=== PATIENT | female | born 1975 | race Caucasian/White ===

== ENCOUNTER 2017-12-30 23:41 | Inpatient (IN) | payer MEDICAID, OTHER ==
[~2017-12-30] VITALS: Ht 172.7 cm; Wt 69.2 kg
[2017-12-30] MEDS ORDERED: GABA-529 PO (23:56)
[2017-12-30] MEDS ORDERED: CITA10TA68 PO (23:59)
[2017-12-30] MEDS ORDERED: DIVA125T PO (23:59)
[2017-12-30] MEDS ORDERED: LEVO100 PO (23:59)
[2017-12-31] VITALS (9 sets, daily range): BP systolic 112–138; BP diastolic 54–82
[2017-12-31] MEDS ORDERED: MUPI22OI2 TP (00:29)
[2017-12-31] MEDS ORDERED: RIT5 PO (00:29)
[2017-12-31 00:35] LABS: EOSINOPHILS % (AUTO) 0.2 % (1.0-6.0); HEMOGLOBIN 12.8 g/dL (12.0-16.0); LYMPHOCYTES # (AUTO) 2.8 K/uL (1.0-4.8); LYMPHOCYTES % (AUTO) 36.1 % (22.0-44.0); MEAN CORPUSCULAR HEMOGLOBIN 33.1 pg (26.0-34.0); MEAN CORPUSCULAR HGB CONC 34.8 G/dL (31.0-37.0); MEAN CORPUSCULAR VOLUME 95 fL (80-100); MONOCYTES # (AUTO) 0.6 K/uL (0.1-1.0); MONOCYTES % (AUTO) 7.7 % (2.0-9.0); NEUTROPHILS # (AUTO) 4.3 K/uL (1.8-7.7); PLATELET COUNT (AUTO) 274 K/uL (150-450); RED BLOOD CELL COUNT(AUTO) 3.88 MIL/uL (4.00-5.20); RED CELL DISTRIBUTION WIDTH 13.7 % (11.5-14.5)
[2017-12-31 00:42] LABS: ANION GAP 15 mmol/L (8-16); CALCIUM, TOTAL 8.1 mg/dL (8.8-10.5); CARBON DIOXIDE 23 mmol/L (22-29); CHLORIDE 106 mmol/L (98-107); CREATININE 0.91 mg/dL (0.60-1.30); GLOMERULAR FILTR. RATE CALC > 60 mL/min (>60); GLUCOSE,RANDOM 69 mg/dL (70-110); POTASSIUM 3.9 mmol/L (3.5-5.1); SODIUM SERUM 144 mmol/L (136-145); UREA NITROGEN, BLOOD 28 mg/dL (7-18)
[2017-12-31 00:48] LABS: ALANINE AMINOTRANSFERASE 127 U/L (12-78); ALBUMIN 3.4 g/dL (3.4-5.0); ALKALINE PHOSPHATASE 105 U/L (46-116); ASPARTATE AMINOTRANSFERASE 310 U/L (15-37); BILIRUBIN,TOTAL 0.3 mg/dL (0.1-1.0)
[2017-12-31 01:19] LABS: AMPHET/METH SCREEN,URINE NEGATIVE (NEGATIVE); BARBITURATE SCREEN, URINE NEGATIVE (NEGATIVE); BENZODIAZEPINES SCREEN,URINE NEGATIVE (NEGATIVE); CANNABINOID SCREEN,URINE POSITIVE (NEGATIVE); COCAINE SCREEN,URINE POSITIVE (NEGATIVE); METHADONE SCREEN, URINE NEGATIVE (NEGATIVE); OPIATE SCREEN,URINE NEGATIVE (NEGATIVE)
[2017-12-31 01:20] LABS: PHENCYCLIDINE SCREEN,URINE NEGATIVE (NEGATIVE)
[2017-12-31] MEDS ORDERED: LORazepam 1 MG TABLET PO ONE (04:00)
[2017-12-31] MEDS ORDERED: OLANZapine 5 MG RAPDIS TABLET PO PRN ×2 (04:15→10:15)
[2017-12-31] MEDS ORDERED: LORazepam 1 MG TABLET PO PRN (04:15)
[2017-12-31] MEDS ORDERED: KETOROLAC TROMETHAMINE 30 MG/ML VIAL IM ONE (04:45)
[2017-12-31] MEDS ORDERED: CLINDAMYCIN PHOS 150 MG/ML 4 ML VIAL IM ONE (04:45)
[2017-12-31] MEDS ORDERED: LIDOCAINE HCL/PF 1% 2 ML VIAL IM ONE (06:00)
[2017-12-31] MEDS ORDERED: AZITHROMYCIN 250 MG TABLET PO ONE (06:00)
[2017-12-31] MEDS ORDERED: CefTRIAXone SODIUM 1 GM/VIAL IM ONE (06:00)
[2017-12-31] MEDS ORDERED: LOPERAMIDE HCL 2 MG CAPSULE PO PRN ×2 (10:15)
[2017-12-31] MEDS ORDERED: TUBERCULIN, PURIFIED PROTEIN DERIVATIVE 5 TU/0.1 ML SYG ID ONE (10:15)
[2017-12-31] MEDS ORDERED: HydrOXYzine PAMOATE 50 MG CAPSULE PO PRN (10:15)
[2017-12-31] MEDS ORDERED: CYANOCOBALAMIN 1,000 MCG/ML VIAL IM ONE (10:15)
[2017-12-31] MEDS ORDERED: PROMETHAZINE HCL 25 MG TABLET PO PRN (10:15)
[2017-12-31] MEDS ORDERED: LORazepam 2 MG TABLET PO PRN (10:15)
[2017-12-31] MEDS ORDERED: GuaiFENesin/D-METHORPHAN [SUGAR-FREE] 200-20MG/10 ML SYRUP UDCUP PO PRN (10:15)
[2017-12-31] MEDS ORDERED: GABAPENTIN 300 MG CAPSULE PO SCH (13:00)
[2017-12-31] MEDS: GABAPENTIN 300 MG CAPSULE PO SCH ×3 (13:47→20:39)
[2017-12-31] MEDS: DIAZEPAM 10 MG TABLET PO PRN ×3 (13:59→21:32)
[2017-12-31] MEDS: ACETAMINOPHEN 325 MG TABLET PO PRN (14:21)
[2017-12-31] MEDS: THIAMINE HCL 100 MG TABLET PO SCH (17:43)
[2017-12-31] MEDS: DIVALPROEX SODIUM 500 MG ER TABLET PO SCH (17:43)
[2017-12-31] MEDS: PRAZOSIN HCL 1 MG CAPSULE PO SCH (20:38)
[2017-12-31] MEDS: QUEtiapine FUMARATE 200 MG TABLET PO SCH (21:32)
[2018-01-01] VITALS (7 sets, daily range): BP systolic 98–160; BP diastolic 61–90
[2018-01-01] MEDS: DIAZEPAM 10 MG TABLET PO PRN ×2 (00:02→23:57)
[2018-01-01] MEDS: ACETAMINOPHEN 325 MG TABLET PO PRN (00:03)
[2018-01-01] MEDS ORDERED: LORazepam 2 MG TABLET PO PRN (07:00)
[2018-01-01] MEDS: GABAPENTIN 300 MG CAPSULE PO SCH ×4 (08:14→20:23)
[2018-01-01] MEDS: DIVALPROEX SODIUM 500 MG ER TABLET PO SCH ×3 (08:14→16:10)
[2018-01-01] MEDS: DIAZEPAM 10 MG TABLET PO SCH ×4 (08:14→20:23)
[2018-01-01] MEDS: MULTIVITAMINS WITH MINERALS, THERAPEUTIC TABLET PO SCH (08:14)
[2018-01-01] MEDS: FOLIC ACID 1 MG TABLET PO SCH (08:14)
[2018-01-01] MEDS: QUEtiapine FUMARATE 25 MG TABLET PO PRN ×3 (08:15→17:25)
[2018-01-01] MEDS: THIAMINE HCL 100 MG TABLET PO SCH ×2 (08:15→16:10)
[2018-01-01] MEDS: ATOMOXETINE HCL 10 MG CAPSULE PO SCH (08:17)
[2018-01-01] MEDS: NALTREXONE HCL 50 MG TABLET PO SCH (08:17)
[2018-01-01] MEDS ORDERED: LORazepam 2 MG TABLET PO SCH (09:00)
[2018-01-01] MEDS ORDERED: ACETAMINOPHEN 325 MG TABLET PO PRN (17:00)
[2018-01-01] MEDS: CEPHALEXIN MONOHYDRATE 500 MG CAPSULE PO SCH (17:24)
[2018-01-01] MEDS: IBUPROFEN 400 MG TABLET PO PRN (17:25)
[2018-01-01] MEDS: PRAZOSIN HCL 1 MG CAPSULE PO SCH (20:24)
[2018-01-01] MEDS: QUEtiapine FUMARATE 200 MG TABLET PO SCH (20:24)
[2018-01-01] MEDS: ZOLPIDEM TARTRATE 10 MG TABLET PO PRN (23:00)
[2018-01-02] VITALS: BP 117/36
[2018-01-02 01:00] VITALS: BP 117/76
[2018-01-02] MEDS: DIAZEPAM 10 MG TABLET PO PRN (02:50)
[2018-01-02] MEDS: QUEtiapine FUMARATE 25 MG TABLET PO PRN ×4 (02:50→18:46)
[2018-01-02] MEDS: LEVOTHYROXINE SODIUM 100 MCG TABLET PO SCH (06:40)
[2018-01-02 08:41] LABS: APPEARANCE,URINE CLOUDY (CLEAR); BILIRUBIN,URINE NEGATIVE (NEGATIVE); GLUCOSE, URINE (UA) NEGATIVE (NEGATIVE); KETONES,URINE NEGATIVE (NEGATIVE); LEUKOCYTE ESTERASE ,URINE LARGE (NEGATIVE); NITRATE,URINE NEGATIVE (NEGATIVE); OCCULT BLOOD,URINE LARGE (NEGATIVE); PROTEIN,URINE NEGATIVE (NEGATIVE); UROBILINOGEN,URINE 0.2 mg/dL (<=1.0)
[2018-01-02 08:49] LABS: BACTERIA,URINE Few /HPF (None Seen); RBC,URINE 0-2 /HPF (0-2); SQUAMOUS EPITHELIAL CELL,UR Many /LPF (None Seen); YEAST,URINE Many /HPF (None Seen)
[2018-01-02] MEDS: ATOMOXETINE HCL 10 MG CAPSULE PO SCH (09:19)
[2018-01-02] MEDS: FOLIC ACID 1 MG TABLET PO SCH (09:19)
[2018-01-02] MEDS: CEPHALEXIN MONOHYDRATE 500 MG CAPSULE PO SCH ×3 (09:19→17:04)
[2018-01-02] MEDS: MULTIVITAMINS WITH MINERALS, THERAPEUTIC TABLET PO SCH (09:19)
[2018-01-02] MEDS: DIAZEPAM 10 MG TABLET PO SCH ×4 (09:19→20:23)
[2018-01-02] MEDS: THIAMINE HCL 100 MG TABLET PO SCH ×2 (09:19→17:05)
[2018-01-02] MEDS: NALTREXONE HCL 50 MG TABLET PO SCH (09:19)
[2018-01-02] MEDS: DIVALPROEX SODIUM 500 MG ER TABLET PO SCH ×3 (09:19→17:04)
[2018-01-02] MEDS: GABAPENTIN 300 MG CAPSULE PO SCH ×4 (09:20→20:23)
[2018-01-02 09:38] VITALS: BP 117/81
[2018-01-02 09:39] VITALS: BP 117/81
[2018-01-02 16:00] VITALS: BP 111/77
[2018-01-02 17:05] VITALS: BP 111/77
[2018-01-02] MEDS: IBUPROFEN 400 MG TABLET PO PRN (17:05)
[2018-01-02] MEDS: PRAZOSIN HCL 1 MG CAPSULE PO SCH (20:23)
[2018-01-02] MEDS ORDERED: QUEtiapine FUMARATE 200 MG TABLET PO SCH (21:00)
[2018-01-02] MEDS: ZOLPIDEM TARTRATE 10 MG TABLET PO PRN (22:26)
[2018-01-03] MEDS: DIAZEPAM 10 MG TABLET PO PRN (03:16)
[2018-01-03] MEDS: LEVOTHYROXINE SODIUM 100 MCG TABLET PO SCH (06:55)
[2018-01-03] MEDS ORDERED: LORazepam 1 MG TABLET PO PRN (07:00)
[2018-01-03] MEDS ORDERED: DIAZEPAM 5 MG TABLET PO PRN (07:00)
[2018-01-03 07:12] VITALS: BP 116/82
[2018-01-03 08:15] VITALS: BP 121/72
[2018-01-03] MEDS: ATOMOXETINE HCL 10 MG CAPSULE PO SCH (08:26)
[2018-01-03] MEDS: DIVALPROEX SODIUM 500 MG ER TABLET PO SCH ×3 (08:26→16:22)
[2018-01-03] MEDS: CEPHALEXIN MONOHYDRATE 500 MG CAPSULE PO SCH ×3 (08:26→16:22)
[2018-01-03] MEDS: MULTIVITAMINS WITH MINERALS, THERAPEUTIC TABLET PO SCH (08:26)
[2018-01-03] MEDS: QUEtiapine FUMARATE 25 MG TABLET PO PRN ×3 (08:26→17:15)
[2018-01-03] MEDS: THIAMINE HCL 100 MG TABLET PO SCH ×2 (08:26→16:22)
[2018-01-03] MEDS: GABAPENTIN 300 MG CAPSULE PO SCH ×4 (08:26→20:13)
[2018-01-03] MEDS: DIAZEPAM 5 MG TABLET PO SCH ×4 (08:26→20:12)
[2018-01-03] MEDS: NALTREXONE HCL 50 MG TABLET PO SCH (08:26)
[2018-01-03] MEDS: FOLIC ACID 1 MG TABLET PO SCH (08:26)
[2018-01-03] MEDS ORDERED: LORazepam 1 MG TABLET PO SCH (09:00)
[2018-01-03] MEDS: IBUPROFEN 400 MG TABLET PO PRN (13:00)
[2018-01-03] MEDS: MAGNESIUM HYDROXIDE SUSPENSION 30 ML UDCUP PO PRN (17:16)
[2018-01-03 18:24] VITALS: BP 117/83
[2018-01-03 20:09] VITALS: BP 128/92
[2018-01-03] MEDS: PRAZOSIN HCL 1 MG CAPSULE PO SCH (20:12)
[2018-01-03] MEDS: QUEtiapine FUMARATE 300 MG TABLET PO SCH (20:12)
[2018-01-03] MEDS: MAG HYDROX/AL HYDROX/SIMETH ES 30 ML SUSPENSION UDCUP PO PRN (21:55)
[2018-01-04 01:45] VITALS: BP 115/77
[2018-01-04] MEDS: ZOLPIDEM TARTRATE 10 MG TABLET PO PRN ×2 (01:45→21:59)
[2018-01-04] MEDS: QUEtiapine FUMARATE 25 MG TABLET PO PRN ×4 (01:46→16:13)
[2018-01-04 06:45] VITALS: BP 116/83
[2018-01-04] MEDS: IBUPROFEN 400 MG TABLET PO PRN (06:51)
[2018-01-04] MEDS ORDERED: LORazepam 1 MG TABLET PO PRN (07:00)
[2018-01-04] MEDS: LEVOTHYROXINE SODIUM 100 MCG TABLET PO SCH (07:14)
[2018-01-04 08:00] VITALS: BP 125/74
[2018-01-04] MEDS: GABAPENTIN 300 MG CAPSULE PO SCH ×4 (09:06→20:55)
[2018-01-04] MEDS: THIAMINE HCL 100 MG TABLET PO SCH ×2 (09:06→16:11)
[2018-01-04] MEDS: FOLIC ACID 1 MG TABLET PO SCH (09:06)
[2018-01-04] MEDS: DIVALPROEX SODIUM 500 MG ER TABLET PO SCH ×3 (09:06→16:12)
[2018-01-04] MEDS: MULTIVITAMINS WITH MINERALS, THERAPEUTIC TABLET PO SCH (09:06)
[2018-01-04] MEDS: CEPHALEXIN MONOHYDRATE 500 MG CAPSULE PO SCH ×3 (09:06→16:11)
[2018-01-04] MEDS: ATOMOXETINE HCL 10 MG CAPSULE PO SCH (09:07)
[2018-01-04] MEDS: NALTREXONE HCL 50 MG TABLET PO SCH (09:07)
[2018-01-04] MEDS: DIAZEPAM 5 MG TABLET PO PRN ×2 (09:10→13:39)
[2018-01-04] MEDS: MAGNESIUM HYDROXIDE SUSPENSION 30 ML UDCUP PO PRN (13:13)
[2018-01-04 17:44] VITALS: BP 123/86
[2018-01-04] MEDS ORDERED: ACETAMINOPHEN 325 MG TABLET PO PRN (19:45)
[2018-01-04 20:13] VITALS: BP 118/72
[2018-01-04] MEDS: TraMADol HCL 50 MG TABLET PO PRN (20:16)
[2018-01-04] MEDS: PRAZOSIN HCL 1 MG CAPSULE PO SCH (20:55)
[2018-01-04] MEDS: QUEtiapine FUMARATE 300 MG TABLET PO SCH (20:56)
[2018-01-05] VITALS: BP 121/71
[2018-01-05] MEDS: DIAZEPAM 5 MG TABLET PO PRN ×3 (00:02→05:17)
[2018-01-05] MEDS: QUEtiapine FUMARATE 25 MG TABLET PO PRN ×5 (05:17→22:26)
[2018-01-05 07:00] LABS: ALANINE AMINOTRANSFERASE 86 U/L (12-78); ALBUMIN 3.3 g/dL (3.4-5.0); ALKALINE PHOSPHATASE 82 U/L (46-116); ANION GAP 7 mmol/L (8-16); ASPARTATE AMINOTRANSFERASE 58 U/L (15-37); BILIRUBIN,TOTAL 0.3 mg/dL (0.1-1.0); CALCIUM, TOTAL 8.8 mg/dL (8.8-10.5); CARBON DIOXIDE 29 mmol/L (22-29); CHLORIDE 104 mmol/L (98-107); GLOMERULAR FILTR. RATE CALC > 60 mL/min (>60); GLUCOSE,RANDOM 96 mg/dL (70-110); POTASSIUM 4.3 mmol/L (3.5-5.1); SODIUM SERUM 140 mmol/L (136-145); TOTAL PROTEIN, SERUM 6.8 g/dL (6.4-8.2); UREA NITROGEN, BLOOD 14 mg/dL (7-18)
[2018-01-05] MEDS: LEVOTHYROXINE SODIUM 100 MCG TABLET PO SCH (07:29)
[2018-01-05] MEDS: DIVALPROEX SODIUM 500 MG ER TABLET PO SCH ×3 (08:51→17:20)
[2018-01-05] MEDS: GABAPENTIN 300 MG CAPSULE PO SCH ×4 (08:52→20:15)
[2018-01-05] MEDS: ATOMOXETINE HCL 10 MG CAPSULE PO SCH (08:52)
[2018-01-05] MEDS: CEPHALEXIN MONOHYDRATE 500 MG CAPSULE PO SCH ×3 (08:52→17:20)
[2018-01-05] MEDS: FOLIC ACID 1 MG TABLET PO SCH (08:52)
[2018-01-05] MEDS: NALTREXONE HCL 50 MG TABLET PO SCH (08:52)
[2018-01-05] MEDS: MULTIVITAMINS WITH MINERALS, THERAPEUTIC TABLET PO SCH (08:52)
[2018-01-05] MEDS: THIAMINE HCL 100 MG TABLET PO SCH ×2 (08:52→17:21)
[2018-01-05 08:58] VITALS: BP 129/77
[2018-01-05] MEDS: TraMADol HCL 50 MG TABLET PO PRN ×2 (08:58→17:19)
[2018-01-05] MEDS: MAG HYDROX/AL HYDROX/SIMETH ES 30 ML SUSPENSION UDCUP PO PRN (09:02)
[2018-01-05] MEDS: IBUPROFEN 400 MG TABLET PO PRN (10:54)
[2018-01-05 17:18] VITALS: BP 139/88
[2018-01-05 18:18] VITALS: BP 130/70
[2018-01-05 19:24] VITALS: BP 132/92
[2018-01-05] MEDS: PRAZOSIN HCL 1 MG CAPSULE PO SCH (20:15)
[2018-01-05] MEDS: QUEtiapine FUMARATE 300 MG TABLET PO SCH (20:15)
[2018-01-06 01:15] VITALS: BP 129/98
[2018-01-06] MEDS: ZOLPIDEM TARTRATE 10 MG TABLET PO PRN (01:20)
[2018-01-06] MEDS: QUEtiapine FUMARATE 25 MG TABLET PO PRN ×4 (04:37→13:53)
[2018-01-06] MEDS: TraMADol HCL 50 MG TABLET PO PRN ×2 (04:38→13:53)
[2018-01-06] MEDS: LEVOTHYROXINE SODIUM 100 MCG TABLET PO SCH (06:20)
[2018-01-06] MEDS: DIVALPROEX SODIUM 500 MG ER TABLET PO SCH ×3 (08:50→16:16)
[2018-01-06] MEDS: CEPHALEXIN MONOHYDRATE 500 MG CAPSULE PO SCH ×3 (08:51→16:17)
[2018-01-06] MEDS: THIAMINE HCL 100 MG TABLET PO SCH ×2 (08:51→16:16)
[2018-01-06] MEDS: FOLIC ACID 1 MG TABLET PO SCH (08:51)
[2018-01-06] MEDS: MULTIVITAMINS WITH MINERALS, THERAPEUTIC TABLET PO SCH (08:51)
[2018-01-06] MEDS: GABAPENTIN 300 MG CAPSULE PO SCH ×4 (08:52→20:57)
[2018-01-06] MEDS: ATOMOXETINE HCL 10 MG CAPSULE PO SCH (08:52)
[2018-01-06] MEDS: NALTREXONE HCL 50 MG TABLET PO SCH (08:52)
[2018-01-06 09:12] VITALS: BP 132/89
[2018-01-06 13:57] VITALS: BP 132/70
[2018-01-06 15:00] VITALS: BP 128/79
[2018-01-06] MEDS ORDERED: QUEtiapine FUMARATE 100 MG TABLET PO ONE (17:00)
[2018-01-06] MEDS ORDERED: NALT50TA PO (17:01)
[2018-01-06] MEDS ORDERED: ATOM10 PO (17:01)
[2018-01-06] MEDS ORDERED: QUET300T18 PO (17:01)
[2018-01-06] MEDS ORDERED: DIVA500T52 PO (17:01)
[2018-01-06] MEDS ORDERED: GABA-531 PO ×2 (17:01→17:10)
[2018-01-06] MEDS ORDERED: PRAZ1 PO (17:03)
[2018-01-06] MEDS ORDERED: CITA20TA9 PO (17:10)
[2018-01-06] MEDS ORDERED: DIVA500T35 PO (17:10)
[2018-01-06] MEDS ORDERED: METH10TA4 PO (17:10)
[2018-01-06 18:01] VITALS: BP 123/90
[2018-01-06] MEDS: PRAZOSIN HCL 1 MG CAPSULE PO SCH (20:56)
[2018-01-06] MEDS ORDERED: QUEtiapine FUMARATE 200 MG TABLET PO SCH (21:00)
[2018-01-07] MEDS: ZOLPIDEM TARTRATE 10 MG TABLET PO PRN (01:24)
[2018-01-07 01:35] VITALS: BP 129/91
[2018-01-07] MEDS: QUEtiapine FUMARATE 100 MG TABLET PO PRN ×2 (06:05→10:36)
[2018-01-07] MEDS: LEVOTHYROXINE SODIUM 100 MCG TABLET PO SCH (06:41)
[2018-01-07] MEDS ORDERED: CEPH500 PO (08:19)
[2018-01-07] MEDS ORDERED: FOLI1 PO (08:21)
[2018-01-07] MEDS ORDERED: ATOM10 PO (08:21)
[2018-01-07] MEDS ORDERED: NALT50TA6 PO (08:22)
[2018-01-07] MEDS ORDERED: MULT-1239 PO (08:22)
[2018-01-07] MEDS ORDERED: QUET200T PO (08:23)
[2018-01-07] MEDS ORDERED: PRAZ1 PO (08:23)
[2018-01-07] MEDS ORDERED: THIA100 PO (08:23)
[2018-01-07] MEDS: FOLIC ACID 1 MG TABLET PO SCH (09:08)
[2018-01-07] MEDS: CEPHALEXIN MONOHYDRATE 500 MG CAPSULE PO SCH ×2 (09:08→12:12)
[2018-01-07] MEDS: DIVALPROEX SODIUM 500 MG ER TABLET PO SCH ×2 (09:08→12:12)
[2018-01-07] MEDS: GABAPENTIN 300 MG CAPSULE PO SCH ×2 (09:08→12:13)
[2018-01-07] MEDS: THIAMINE HCL 100 MG TABLET PO SCH (09:09)
[2018-01-07] MEDS: ATOMOXETINE HCL 10 MG CAPSULE PO SCH (09:09)
[2018-01-07] MEDS: MULTIVITAMINS WITH MINERALS, THERAPEUTIC TABLET PO SCH (09:09)
[2018-01-07] MEDS: NALTREXONE HCL 50 MG TABLET PO SCH (09:09)
[2018-01-07] MEDS: TraMADol HCL 50 MG TABLET PO PRN (09:12)
[2018-01-07 09:15] VITALS: BP 123/84
[2018-01-07 10:15] VITALS: BP 126/79
== END 2018-01-07 13:15 | disposition home or self-care (01) | DRG 750 ==
LOC: EMS 23:44 → 3EI 12-31 08:08
PROVIDERS: ADMIT Psychiatry & Neurology Psychiatry; ATTEND Psychiatry & Neurology Psychiatry
DX: F25.0 Schizoaffective disorder, bipolar type (principal); G93.41 Metabolic encephalopathy; L03.115 Cellulitis of right lower limb; T76.21XA Adult sexual abuse, suspected, initial encounter; Z91.19 Patient's noncompliance with other medical treatment and regimen; N39.0 Urinary tract infection, site not specified; E03.9 Hypothyroidism, unspecified; F10.129 Alcohol abuse with intoxication, unspecified; F17.200 Nicotine dependence, unspecified, uncomplicated; F12.90 Cannabis use, unspecified, uncomplicated; F14.90 Cocaine use, unspecified, uncomplicated; F41.9 Anxiety disorder, unspecified; Z88.2 Allergy status to sulfonamides
CPT/HCPCS: 80074; 84443; 87086; 87106; 96372; 99285; G0480; J0696; J1885; J3420; J3490; S0077

== ENCOUNTER 2018-02-09 01:46 | Emergency (ER) | payer MEDICAID, OTHER ==
[~2018-02-09] VITALS: Ht 172.7 cm; Wt 68.2 kg
[~2018-02-09 01:46] MED LIST: ATOM10 PO; CEPH500 PO; DIVA500T35 PO; DIVA500T52 PO; FOLI1 PO; GABA-531 PO; LEVO100 PO; MULT-1239 PO; NALT50TA PO; NALT50TA6 PO; PRAZ1 PO; QUET200T PO; QUET300T18 PO; THIA100 PO
[2018-02-09 02:33] LABS: EOSINOPHILS % (AUTO) 0.8 % (1.0-6.0); LYMPHOCYTES # (AUTO) 5.2 K/uL (1.0-4.8); LYMPHOCYTES % (AUTO) 51.2 % (22.0-44.0); MEAN CORPUSCULAR HEMOGLOBIN 32.9 pg (26.0-34.0); MEAN CORPUSCULAR HGB CONC 35.1 G/dL (31.0-37.0); MEAN CORPUSCULAR VOLUME 94 fL (80-100); MONOCYTES # (AUTO) 0.8 K/uL (0.1-1.0); MONOCYTES % (AUTO) 7.9 % (2.0-9.0); NEUTROPHILS % (AUTO) 39.1 % (40.0-70.0); PLATELET COUNT (AUTO) 270 K/uL (150-450); RED BLOOD CELL COUNT(AUTO) 4.28 MIL/uL (4.00-5.20); RED CELL DISTRIBUTION WIDTH 13.4 % (11.5-14.5)
[2018-02-09 02:45] LABS: ANION GAP 15 mmol/L (8-16); CALCIUM, TOTAL 8.4 mg/dL (8.8-10.5); CARBON DIOXIDE 25 mmol/L (22-29); CHLORIDE 102 mmol/L (98-107); CREATININE 0.97 mg/dL (0.60-1.30); GLOMERULAR FILTR. RATE CALC > 60 mL/min (>60); GLUCOSE,RANDOM 91 mg/dL (70-110); SODIUM SERUM 142 mmol/L (136-145); UREA NITROGEN, BLOOD 26 mg/dL (7-18)
[2018-02-09 02:50] LABS: APPEARANCE,URINE CLOUDY (CLEAR); BILIRUBIN,URINE NEGATIVE (NEGATIVE); GLUCOSE, URINE (UA) NEGATIVE (NEGATIVE); KETONES,URINE TRACE mg/dL (NEGATIVE); LEUKOCYTE ESTERASE ,URINE TRACE (NEGATIVE); NITRATE,URINE POSITIVE (NEGATIVE); OCCULT BLOOD,URINE NEGATIVE (NEGATIVE); PROTEIN,URINE NEGATIVE (NEGATIVE); UROBILINOGEN,URINE 0.2 mg/dL (<=1.0)
[2018-02-09 02:53] LABS: AMPHET/METH SCREEN,URINE NEGATIVE (NEGATIVE); BARBITURATE SCREEN, URINE NEGATIVE (NEGATIVE); BENZODIAZEPINES SCREEN,URINE NEGATIVE (NEGATIVE); CANNABINOID SCREEN,URINE NEGATIVE (NEGATIVE); COCAINE SCREEN,URINE POSITIVE (NEGATIVE); METHADONE SCREEN, URINE NEGATIVE (NEGATIVE); OPIATE SCREEN,URINE NEGATIVE (NEGATIVE)
[2018-02-09 02:55] LABS: PHENCYCLIDINE SCREEN,URINE NEGATIVE (NEGATIVE)
[2018-02-09 03:00] LABS: ALANINE AMINOTRANSFERASE 154 U/L (12-78); ALBUMIN 3.7 g/dL (3.4-5.0); ALKALINE PHOSPHATASE 90 U/L (46-116); ASPARTATE AMINOTRANSFERASE 236 U/L (15-37); BILIRUBIN,TOTAL 0.3 mg/dL (0.1-1.0); THYROID STIMULATING HORMONE 1.39 uIU/mL (0.36-3.74); TOTAL PROTEIN, SERUM 7.8 g/dL (6.4-8.2); VALPROIC ACID 39 mcg/mL (50-100)
[2018-02-09 03:27] LABS: BACTERIA,URINE Many /HPF (None Seen); RBC,URINE 0-2 /HPF (0-2)
[2018-02-09 03:28] LABS: SQUAMOUS EPITHELIAL CELL,UR Moderate /LPF (None Seen)
[2018-02-09] MEDS: NITROFURANTOIN/NITROFURAN MAC 100 MG CAPSULE [MACROBID] PO ONE ×2 (04:08→05:40)
[2018-02-09 05:16] VITALS: BP 128/69
== END 2018-02-09 06:13 | disposition home or self-care (01) ==
LOC: EMS 01:48
DX: N39.0 Urinary tract infection, site not specified (principal); F31.9 Bipolar disorder, unspecified; F10.129 Alcohol abuse with intoxication, unspecified; F14.10 Cocaine abuse, uncomplicated; E05.90 Thyrotoxicosis, unspecified without thyrotoxic crisis or storm; F17.210 Nicotine dependence, cigarettes, uncomplicated; Z88.2 Allergy status to sulfonamides; Z79.899 Other long term (current) drug therapy
CPT/HCPCS: 36415; 80053; 80164; 80307; 81001; 84443; 84703; 85025; 87077; 87086; 87186; 99284; G0480